=== PATIENT | male | born 1940 | race Caucasian/White ===

== ENCOUNTER → 2017-07-14 09:12 | Outpatient (CLI) | payer MEDICARE, OTHER, SELFPAY ==
[2017-07-14 10:35] LABS: Anion Gap 6 (5-15); BUN 43 mg/dL (7-18); BUN/Creat Ratio 33.6 RATIO (10-20); Calcium,Total 8.7 mg/dL (8.5-10.1); Chloride 109 mmol/L (98-107); Cholesterol 189 mg/dL (200); Creatinine, Serum 1.28 mg/dL (0.70-1.30); EST Glomerular Filtration Rate 58 mL/min (>60); Est Glom Filt Rate - Afr Amer 70 mL/min (>60); Glucose 102 mg/dL (74-106); High Density Lipoprotein 53 mg/dL; PSA,Total - Annual Screen 1.34 ng/mL (0.00-4.00); Potassium 4.5 mmol/L (3.5-5.1); Sodium Level 139 mmol/L (136-145); Triglycerides 75 mg/dL; Very Low Density Lipoprotein 15 mg/dL (5-40)
== END ==
PROVIDERS: Family Provider Family Medicine; PCP Family Medicine; Visit Provider Family Medicine
DX: E78.00 Pure hypercholesterolemia, unspecified (principal); I10 Essential (primary) hypertension; Z12.5 Encounter for screening for malignant neoplasm of prostate
CPT/HCPCS: 36415; 80048; 80061; 84153; G0103

== ENCOUNTER → 2018-07-09 09:22 | Outpatient (CLI) | payer MEDICARE, OTHER, SELFPAY ==
[2018-07-09 12:38] LABS: Anion Gap 5 (5-15); BUN 40 mg/dL (7-18); BUN/Creat Ratio 29.6 RATIO (10-20); Calcium,Total 8.7 mg/dL (8.5-10.1); Chloride 111 mmol/L (98-107); Cholesterol 198 mg/dL (200); Creatinine, Serum 1.35 mg/dL (0.70-1.30); EST Glomerular Filtration Rate 54 mL/min (>60); Est Glom Filt Rate - Afr Amer 66 mL/min (>60); Glucose 103 mg/dL (74-106); High Density Lipoprotein 50 mg/dL; Potassium 4.6 mmol/L (3.5-5.1); Sodium Level 141 mmol/L (136-145); Triglycerides 85 mg/dL; Very Low Density Lipoprotein 17 mg/dL (5-40)
== END ==
PROVIDERS: Family Provider Family Medicine; PCP Family Medicine; Referring Provider Family Medicine; Visit Provider Family Medicine
DX: I10 Essential (primary) hypertension (principal); E78.00 Pure hypercholesterolemia, unspecified; Z12.5 Encounter for screening for malignant neoplasm of prostate
CPT/HCPCS: 36415; 80048; 80061

== ENCOUNTER → 2019-01-07 10:16 | Outpatient (CLI) | payer MEDICARE, OTHER, SELFPAY ==
[2019-01-07 12:44] LABS: Anion Gap 5 (5-15); BUN 39 mg/dL (7-18); BUN/Creat Ratio 30.7 RATIO (10-20); Calcium,Total 9.3 mg/dL (8.5-10.1); Chloride 108 mmol/L (98-107); Creatinine, Serum 1.27 mg/dL (0.70-1.30); EST Glomerular Filtration Rate 58 mL/min (>60); Est Glom Filt Rate - Afr Amer 70 mL/min (>60); Glucose 100 mg/dL (74-106); Potassium 4.6 mmol/L (3.5-5.1); Sodium Level 140 mmol/L (136-145)
== END ==
PROVIDERS: Family Provider Family Medicine; PCP Family Medicine; Referring Provider Family Medicine; Visit Provider Family Medicine
DX: I10 Essential (primary) hypertension (principal)
CPT/HCPCS: 36415; 80048

== ENCOUNTER → 2020-01-20 08:27 | Outpatient (CLI) | payer MEDICARE, OTHER, SELFPAY ==
[2020-01-20 10:41] LABS: Absolute Lymphocyte Count 1.14 X10^3/uL (0.83-4.51); Absolute Neutrophil Count 2.7 X10^3/uL (2.0-7.7); Basophil# 0.06 X10^3/uL; Basophil% 1.2 % (0-1); Eosinophil# 0.48 X10^3/uL; Eosinophils% 9.6 % (0-5); Hematocrit 43.1 % (40-54); Hemoglobin 14.1 g/dL (13.0-16.5); Lymphocyte # 1.14 X10^3/ul (4.0); Lymphocyte % 22.9 % (19-41); Mean Corp Hgb Conc 32.7 g/dL (32-36); Mean Corpuscular Hgb 30.1 pg (27.0-32.0); Mean Corpuscular Volume 91.9 fL (80-94); Mean Platelet Vol. 11.7 fl (6.2-12.0); Monocyte# 0.56 X10^3/uL; Monocyte% 11.2 % (0-10); NRBC Flagged by Analyzer 0 % (0-5); Neutrophil # 2.72 X10^3/uL (2.7-7.7); Neutrophil % 54.7 % (47-70); Platelet Count 163 K/mm3 (150-450); RBC Distribution Width CV 13.1 % (11.6-14.6); Red Blood Count 4.69 M/mm3 (4.6-6.2)
[2020-01-20 11:30] LABS: ALB/GLOB Ratio 1.1 RATIO (0.9-2.4); AST(SGOT) 24 U/L (15-37); Alanine Aminotransfer ALT/SGPT 31 U/L (16-61); Albumin, Serum 3.5 g/dL (3.2-5.0); Alkaline Phosphatase 48 U/L (45-117); Anion Gap 8 (5-15); BUN 36 mg/dL (7-18); BUN/Creat Ratio 24.7 RATIO (10-20); Chloride 108 mmol/L (98-107); Cholesterol 209 mg/dL (200); Creatinine, Serum 1.46 mg/dL (0.70-1.30); EST Glomerular Filtration Rate 49 mL/min (>60); Est Glom Filt Rate - Afr Amer 60 mL/min (>60); Globulin 3.3 g/dL (2.2-4.2); Glucose 103 mg/dL (74-106); High Density Lipoprotein 63 mg/dL; Potassium 4.4 mmol/L (3.5-5.1); Protein, Total 6.8 g/dL (6.4-8.2); Sodium Level 140 mmol/L (136-145); Triglycerides 81 mg/dL; Very Low Density Lipoprotein 16 mg/dL (5-40)
[2020-01-20 15:43] LABS: Microalbumin:Creatinine Ratio 39.6 mg/g CRE (<30 mg/g CRE)
== END ==
PROVIDERS: PCP Family Medicine; Referring Provider Family Medicine; Visit Provider Family Medicine
DX: I10 Essential (primary) hypertension (principal); E78.00 Pure hypercholesterolemia, unspecified
CPT/HCPCS: 36415; 80053; 80061; 82043; 82570; 85025

== ENCOUNTER → 2020-07-14 09:02 | Outpatient (CLI) | payer MEDICARE, OTHER, SELFPAY ==
[2020-07-14 10:50] LABS: Thyroid Stim Hormone (TSH) 8.55 uIU/mL (0.358-3.74)
== END ==
PROVIDERS: PCP Family Medicine; Visit Provider Family Medicine
DX: E04.1 Nontoxic single thyroid nodule (principal)
CPT/HCPCS: 36415; 84443

== ENCOUNTER → 2020-07-20 12:46 | Outpatient (CLI) | payer MEDICARE, OTHER, SELFPAY ==
--- NOTE | 2020-07-20 12:52 | US_ITS ---
STUDY: THYROID ULTRASOUND REASON FOR EXAM: Male, 79 years old. NODULE TECHNIQUE: Ultrasound evaluation of the thyroid was performed with real-time and static parada-scale imaging. COMPARISON: None. FINDINGS: RIGHT LOBE: The right lobe of the thyroid gland measures 3.8 x 1.7 x 2.3 cm. There is a homogeneous echotexture. There are no demonstrated solid, cystic or complex lesions. LEFT LOBE: The left lobe of the thyroid gland measures 4.2 x 1.1 x 2.1 cm. There is a homogeneous echotexture. There are no demonstrated solid, cystic or complex lesions. ISTHMUS: The isthmus measures 5 mm . The regional lymph nodes are normal. US/Thyroid IMPRESSION: Normal ultrasound examination of the thyroid. Electronically Signed: Malik Victor MD at 11:11 EDT Tel , Service support ,
== END ==
PROVIDERS: PCP Family Medicine; Referring Provider Family Medicine; Visit Provider Family Medicine
DX: E04.1 Nontoxic single thyroid nodule (principal)
CPT/HCPCS: 76536

== ENCOUNTER → 2021-01-08 08:53 | Outpatient (CLI) | payer MEDICARE, OTHER, SELFPAY ==
[2021-01-08 09:57] LABS: Absolute Lymphocyte Count 1.03 X10^3/uL (0.83-4.51); Absolute Neutrophil Count 3.1 X10^3/uL (2.0-7.7); Basophil# 0.08 X10^3/uL; Basophil% 1.4 % (0-1); Eosinophil# 0.63 X10^3/uL; Eosinophils% 11.3 % (0-5); Hematocrit 44.2 % (40-54); Hemoglobin 14.7 g/dL (13.0-16.5); Lymphocyte # 1.03 X10^3/ul (0.83-4.51); Lymphocyte % 18.4 % (19-41); Mean Corp Hgb Conc 33.3 g/dL (32-36); Mean Corpuscular Hgb 30.9 pg (27.0-32.0); Mean Corpuscular Volume 92.9 fL (80-94); Mean Platelet Vol. 11.7 fl (6.2-12.0); Monocyte% 12.5 % (0-10); NRBC Flagged by Analyzer 0 % (0-5); Neutrophil # 3.12 X10^3/uL (2.7-7.7); Neutrophil % 55.9 % (47-70); Platelet Count 145 K/mm3 (150-450); RBC Distribution Width CV 12.9 % (11.6-14.6); RBC Distribution Width SD 44.4 fl (35.1-43.9); Red Blood Count 4.76 M/mm3 (4.6-6.2); White Blood Count 5.6 K/mm3 (4.4-11.0)
[2021-01-08 10:16] LABS: AST(SGOT) 25 U/L (15-37); Alanine Aminotransfer ALT/SGPT 34 U/L (16-61); Albumin, Serum 3.6 g/dL (3.2-5.0); Alkaline Phosphatase 48 U/L (45-117); Anion Gap 4 (5-15); BUN 41 mg/dL (7-18); BUN/Creat Ratio 25.8 RATIO (10-20); Calcium,Total 9.1 mg/dL (8.5-10.1); Chloride 109 mmol/L (98-107); Cholesterol 203 mg/dL (200); Creatinine, Serum 1.59 mg/dL (0.70-1.30); EST Glomerular Filtration Rate 45 mL/min (>60); Est Glom Filt Rate - Afr Amer 54 mL/min (>60); Globulin 3.6 g/dL (2.2-4.2); Glucose 105 mg/dL (74-106); High Density Lipoprotein 54 mg/dL; Protein, Total 7.2 g/dL (6.4-8.2); Sodium Level 139 mmol/L (136-145); Triglycerides 127 mg/dL; Very Low Density Lipoprotein 25 mg/dL (5-40)
== END ==
PROVIDERS: PCP Family Medicine; Referring Provider Family Medicine; Visit Provider Family Medicine
DX: I10 Essential (primary) hypertension (principal)
CPT/HCPCS: 36415; 80053; 80061; 85025

== ENCOUNTER → 2021-01-11 10:15 | Outpatient (CLI) | payer MEDICARE, OTHER, SELFPAY ==
[2021-01-11 12:37] LABS: Thyroid Stim Hormone (TSH) 2.84 uIU/mL (0.358-3.74)
[2021-04-28 10:52] LABS: Anion Gap 9 (5-15); BUN 39 mg/dL (7-18); BUN/Creat Ratio 26.5 RATIO (10-20); Calcium,Total 9.2 mg/dL (8.5-10.1); Chloride 106 mmol/L (98-107); Creatinine, Serum 1.47 mg/dL (0.70-1.30); EST Glomerular Filtration Rate 49 mL/min (>60); Est Glom Filt Rate - Afr Amer 59 mL/min (>60); Glucose 113 mg/dL (74-106); Sodium Level 140 mmol/L (136-145)
== END ==
PROVIDERS: Nurse Practitioner Family; PCP Family Medicine; Visit Provider Family Medicine
DX: E03.9 Hypothyroidism, unspecified (principal)
CPT/HCPCS: 36415; 80048; 84443

== ENCOUNTER 2021-04-28 09:25 | Outpatient (CLI) | payer MEDICARE, OTHER, SELFPAY | END 2021-04-28 23:59 | disposition short-term general hospital (02) | LOC: MFPLAB 09:29 | PROVIDERS: PCP Nurse Practitioner Family; Referring Provider Nurse Practitioner Family; Visit Provider Nurse Practitioner Family | DX: Z00.00 Encounter for general adult medical examination without abnormal findings (principal) ==

== ENCOUNTER → 2021-12-27 | Outpatient (CLI) | payer MEDICARE, OTHER, SELFPAY ==
[2021-12-27 12:55] LABS: Thyroid Stim Hormone (TSH) 2.92 uIU/mL (0.358-3.74)
== END | disposition home or self-care (01) ==
LOC: MFPLAB 10:15
PROVIDERS: PCP Nurse Practitioner Family; Visit Provider Family Medicine
DX: E03.9 Hypothyroidism, unspecified (principal)
CPT/HCPCS: 36415; 84443

== ENCOUNTER → 2022-04-07 | Outpatient (CLI) | payer MEDICARE, OTHER, SELFPAY ==
--- NOTE | 2022-04-07 14:06 | RAD_ITS ---
STUDY: X-RAY - PELVIS AND RIGHT HIP REASON FOR EXAM: Male, 81 years old. Right leg and hip pain for one month. Limp. TECHNIQUE: 3 views of the pelvis and hip. COMPARISON: None. FINDINGS: There is a non-specific bowel gas pattern. Normal visualized soft tissue structures. Degenerative changes of the lower lumbar spine. Normal bilateral iliac wings, sacroiliac joints and visualized sacrum. Normal bilateral superior and inferior pubic rami. Normal pubic symphysis. Normal bilateral ischial tuberosities. There is evidence of a left hemiarthroplasty. Normal visualized right femoral head. There is cortical sclerosis with sub-cortical cyst formation of the acetabulum. There is moderate to severe articular joint space narrowing of the hip. RAD/HIP, UNI W/ Pelvis 2-3 Views IMPRESSION: Degenerative changes of right hip and lumbar spine no fracture or dislocation.. Electronically Signed: Shamir Woodruff DO at 16:58 EST ,
--- NOTE | 2022-04-07 14:06 | RAD_ITS ---
STUDY: X-RAY - RIGHT KNEE REASON FOR EXAM: Male, 81 years old. Pain for one month. Patient has a bad limping uses a cane. TECHNIQUE: 3 view(s) of the knee. COMPARISON: None. FINDINGS: Normal visualized distal femur. Normal visualized proximal tibia and fibula. Normal proximal tibiofibular articulation. There is no acute fracture, dislocation or destructive osseous pathology. There is mild degenerative arthrosis of the medial femorotibial compartment. Normal lateral femorotibial compartment. Normal patellofemoral articulation. There is no demonstrated joint effusion. There are atherosclerotic calcifications. RAD/Knee 3 Views IMPRESSION: Mild arthrosis of the medial femorotibial compartment. No fracture or dislocation. Electronically Signed: Shamir Woodruff DO at 16:59 EST ,
== END | disposition home or self-care (01) ==
PROVIDERS: PCP Nurse Practitioner Family; Referring Provider Nurse Practitioner Family; Visit Provider Nurse Practitioner Family
DX: M16.11 Unilateral primary osteoarthritis, right hip (principal); M79.604 Pain in right leg
CPT/HCPCS: 73502; 73562

== ENCOUNTER → 2022-06-27 | Outpatient (CLI) | payer MEDICARE, OTHER, SELFPAY ==
[2022-06-27 12:20] LABS: ALB/GLOB Ratio 1.1 RATIO (0.9-2.4); AST(SGOT) 17 U/L (15-37); Alanine Aminotransfer ALT/SGPT 22 U/L (16-61); Albumin, Serum 3.7 g/dL (3.2-5.0); Alkaline Phosphatase 58 U/L (45-117); Anion Gap 4 (5-15); BUN 52 mg/dL (7-18); BUN/Creat Ratio 29.9 RATIO (10-20); Calcium,Total 9.3 mg/dL (8.5-10.1); Chloride 109 mmol/L (98-107); Cholesterol 203 mg/dL (200); Creatinine, Serum 1.74 mg/dL (0.70-1.30); EST Glomerular Filtration Rate 40 mL/min (>60); Est Glom Filt Rate - Afr Amer 48 mL/min (>60); Globulin 3.4 g/dL (2.2-4.2); Glucose 113 mg/dL (74-106); High Density Lipoprotein 55 mg/dL; Potassium 4.9 mmol/L (3.5-5.1); Protein, Total 7.1 g/dL (6.4-8.2); Sodium Level 138 mmol/L (136-145); Triglycerides 83 mg/dL; Very Low Density Lipoprotein 17 mg/dL (5-40)
== END | disposition home or self-care (01) ==
LOC: MFPLAB 10:31
PROVIDERS: PCP Nurse Practitioner Family; Visit Provider Family Medicine
DX: E78.00 Pure hypercholesterolemia, unspecified (principal); I10 Essential (primary) hypertension
CPT/HCPCS: 36415; 80053; 80061

== ENCOUNTER → 2022-08-10 | Outpatient (CLI) | payer MEDICARE, OTHER, SELFPAY ==
[2022-08-10 12:35] LABS: Absolute Neutrophil Count 4.2 X10^3/uL (2.0-7.7); Basophil# 0.06 X10^3/uL; Basophil% 0.9 % (0-1); Eosinophil# 0.52 X10^3/uL; Hematocrit 44.4 % (40-54); Hemoglobin 14.2 g/dL (13.0-16.5); Lymphocyte % 15.5 % (19-41); Mean Corpuscular Hgb 30.3 pg (27.0-32.0); Mean Corpuscular Volume 94.7 fL (80-94); Mean Platelet Vol. 11.8 fl (6.2-12.0); Monocyte# 0.69 X10^3/uL; Monocyte% 10.7 % (0-10); NRBC Flagged by Analyzer 0 % (0-5); Neutrophil # 4.15 X10^3/uL (2.7-7.7); Neutrophil % 64.3 % (47-70); Platelet Count 172 K/mm3 (150-450); RBC Distribution Width CV 13.2 % (11.6-14.6); RBC Distribution Width SD 45.3 fl (35.1-43.9); Red Blood Count 4.69 M/mm3 (4.6-6.2); White Blood Count 6.5 K/mm3 (4.4-11.0)
[2022-08-10 12:41] LABS: ALB/GLOB Ratio 0.9 RATIO (0.9-2.4); AST(SGOT) 19 U/L (15-37); Alanine Aminotransfer ALT/SGPT 23 U/L (16-61); Albumin, Serum 3.6 g/dL (3.2-5.0); Alkaline Phosphatase 66 U/L (45-117); Anion Gap 6 (5-15); BUN 41 mg/dL (7-18); BUN/Creat Ratio 28.7 RATIO (10-20); Calcium,Total 9.9 mg/dL (8.5-10.1); Chloride 106 mmol/L (98-107); Creatinine, Serum 1.43 mg/dL (0.70-1.30); EST Glomerular Filtration Rate 50 mL/min (>60); Est Glom Filt Rate - Afr Amer 61 mL/min (>60); Globulin 3.8 g/dL (2.2-4.2); Glucose 103 mg/dL (74-106); Potassium 5.2 mmol/L (3.5-5.1); Protein, Total 7.4 g/dL (6.4-8.2); Sodium Level 138 mmol/L (136-145)
== END | disposition home or self-care (01) ==
LOC: MFPLAB 11:08
PROVIDERS: PCP Family Medicine; Visit Provider Family Medicine
DX: Z01.818 Encounter for other preprocedural examination (principal)
CPT/HCPCS: 36415; 80053; 85025

== ENCOUNTER → 2022-08-19 | Outpatient (CLI) | payer MEDICARE, OTHER, SELFPAY ==
[2022-08-19 12:34] LABS: Potassium 4.9 mmol/L (3.5-5.1)
== END | disposition home or self-care (01) ==
PROVIDERS: PCP Family Medicine; Visit Provider Family Medicine
DX: E87.5 Hyperkalemia (principal)
CPT/HCPCS: 36415; 84132

== ENCOUNTER 2022-09-28 14:42 | Observation (INO) | payer MEDICARE, OTHER, SELFPAY ==
--- NOTE | 2022-09-14 13:24 | PCM.HP.BLA ---
History and Physical DATE OF SURGERY: 09/28/2022 SCHEDULED PROCEDURE: RIGHT TOTAL HIP ARTHROPLASTY HISTORY OF PRESENT ILLNESS: Patient is a 81-year-old male with a chief complaint of right hip pain. Patient complains of pain with 7 month duration. The pain is 2-4 on a scale of 10, 7 with activity. The pain is increased with walking, sitting, twisting. The pain is located lateral hip, groin. The patient states that the pain does not awaken them at night. Activity modification include a reduced ability to perform normal activity without pain. The patient does perceive that the affected leg is longer than the other. Previous treatments include rest, Ibuprofen. The patient has a history of stroke that occurred in 2000, the left side was affected. Patient had a previous stroke in 2000 leading his left side significantly impaired. His right side is his dominant side and pain in the right hip has significant limited his ability to perform activities of daily living without associated pain. His [id number]-uld who is a nurse and one of his primary caregivers notes he has increasing difficulty dressing and undressing himself with his limited hip range of motion and pain. This is led to loss of independence of some ADLs. he failed conservative therapy and would like to proceed with total arthroplasty REVIEW OF SYSTEMS: Review Of Systems: Constitutional: Denies change in appetite, fever and weight change. Cardiovasular: Denies chest pain, heart murmur and irregular heartbeat. Respiratory: Denies cough, pneumonia, shortness of breath, tuberculosis and wheezing. Gastrointestinal: Reports heartburn, but denies constipation, diarrhea, nausea, rectal itching, bloody stools and vomiting. Genitourinary: . (F Genital Sx) . (Urinary Sx) Musculoskeletal: Reports gait disturbance, leg swelling, pain, trouble walking and weakness. Skin: Reports history of shingles, but denies Raynaud's and tattoo. Neurological: Reports ambulatory dysfunction but denies dizziness, numbness/tingling and tremor. Psychiatric: Denies anxiety, insomnia and stress. Hematologic/Lymphatic: Denies anemia, bleeding/bruising tendency and past transfusion. Reviewed and updated. PAST MEDICAL HISTORY: Advance Care Plan: Other Directive, living will Effective Date: 07/13/2022 Past Medical History: Medical Problems: Asthma, Hard of Hearing, High Blood Pressure, Stroke Accidents: Fracture - (2004) LT HIP / FALL Surgical Hx: Hip Replacement Lt - (2004) [facility] Cataracts - (02/2022) BILAT Anesthesia Complications: None Assistive Devices: Cane, Glasses, Walker, Brace Reviewed and updated. SOCIAL HISTORY: Social History: Marital: .Occupation: Retired.Work Status: Retired.Hand Dominance: Right-handed. Personal Habits: Cigarette Use: Never Smoked Cigarettes.Smokeless Tobacco: Never Used Smokeless Tobacco.E-Cigarette Use: Never used.Alcohol: Denies use.Drug Use: Denies Use.Enjoy Exercising: Never Exercises. Reviewed, no changes. VITALS: Ht: 69 Wt: 183lb Wt k.009 BMI: 27.0 BP: 120/66 Pulse: 85 Resp: 15 T: 97.5 T: 36.4C Pain Level: 5 O2SatR: 97 ALLERGIES: No Known Drug Allergy MEDICATIONS: Breo Ellipta 100-25 mcg/Act daily, Labetalol HCL 100 mg 1 by mouth every day, Enalapril Maleate 20 mg 1 PO daily, Levothyroxine Sodium 25 mcg 1 by mouth every day PRE-OP EXAM: General appearance:NORMAL Other: Eyes: Conjunctivae and lids: NORMAL Pupils: ERR Ears, Nose, Mouth, and Throat: NORMAL Other: Inspection of lips, teeth and gums: NORMAL Other: Neck: Examination of neck: no masses noted. Respiratory: Assessment of respiratory effort: NORMAL Other: Auscultation of lungs: clear to auscultation no wheezes, rhonchi or rales. Cardiovascular: Auscultation of heart: regular rate and rhythm, no murmurs, gallops or rubs. Exam of carotid arteries: NORMAL Other: Gastrointestinal: Exam of abdomen: soft, nontender, nondistended bowel sounds present. Lymphatic: Palpation of nodes in neck: NORMAL Other: Palpation of nodes in Axillae: NORMAL Other: Neurological: see below Psychiatric: Orientation to time, place and person: NORMAL Other: Mood and affect: NORMAL Other: PHYSICAL EXAMINATION: Exam: Const: Appears healthy. No signs of apparent distress present. Alert and oriented x 3. Musculo: Antalgic gait, patient ambulates with a walker. Patient has significant weakness on the left side. Hips: ?Insp/Palp: Right hip: Pain with passive motion. Flexion 90 degrees, internal rotation 5 degrees. 4 out of 5 hip flexion strength secondary to pain. Skin: Skin is warm, dry and intact. Neuro: Sensation to light touch is intact in the lower extremities deep peroneal, lower extremities dorsal cutaneous, lower extremities saphenous, lower extremities sural and lower extremities tibial nerve distribution. Neurological and vascular function intact. IMAGING STUDIES: AP pelvis was obtained today with me for preoperative planning. These show previous left hip hemiarthroplasty with continued joint space. There is shortening of the left hip with decreased offset compared to the right based on right eye for comparison. On the right there is complete loss of joint space subchondral sclerosis and osteophyte formation as well as subchondral cyst formation with collapse of the femoral head and flattening of the femoral head. These findings are consistent with severe stage IV erosive gxpy-og-suya osteoarthritis. IMPRESSION: 1. GRADE IV OSTEOARTHRITIS RIGHT HIP 2. Asthma 3. Hard of Hearing 4 High Blood Pressure 5. Stroke PLAN: Patient denies history of DVT or PE, open wounds or sores over the body, no allergies to antibiotics and no current antibiotic use. No current dental issues Aspirin 81 twice a day ?4 weeks for DVT prophylaxis postoperatively At this time patient has [facility] France did discuss and review with the patient all treatment options including surgical versus nonsurgical options. Patient does wish to proceed with the above-stated procedure. Potential risk, benefits, and complications of the procedure were discussed in detail including but not limited to , infection, nerve and blood vessel damage, persistent pain, numbness, tingling, paresthesias, blood clot, pulmonary embolism, and requirement for possible further surgery. The patient expressed full understanding and has no further questions for the doctor. Patient does agree to proceed with the above-stated procedure and has signed the surgery consent form. I have reviewed the [place] Automated Rx Reporting System (OARRS) report for this patient for refill pattern and other prescriber involvement as part of the appropriate surveillance for the provision of acute and chronic controlled medications. The report was requested and reviewed on the date of this entry and was considered in the prescribing process. Discussed with the patient the risks associated with the COVID-19 virus including the risk of exposure while at the hospital. The patient was reassured local hospitals have low infection rates and taken all necessary precautions to limit patient exposure to COVID-19. Limiting the patient's time in the hospital may decrease their exposure to COVID-19. The patient was notified that we will need to comply with any screening or testing the hospital wishes to perform and that surgery may be delayed for any positive test results.
--- NOTE | 2022-09-20 11:20 | RAD_ITS ---
STUDY: X-RAY CHEST REASON FOR EXAM: Male, 81 years old. Preop, hip surgery. TECHNIQUE: PA and lateral views of the chest. COMPARISON: None. FINDINGS: The lungs are clear and expanded. There is no demonstrated pleural abnormality. Normal size heart. Normal mediastinum and adonis. Normal visualized pulmonary arteries. Normal visualized aortic arch and descending thoracic aorta. There are diffuse degenerative changes of the visualized thoracic spine. There is a healed fracture of the left mid clavicle. There is no demonstrated abnormality of the visualized soft tissue structures of the upper abdomen. RAD/Chest PA and Lateral IMPRESSION: No acute cardiopulmonary disease. Electronically Signed: Shamir Woodruff DO at 16:38 EDT ,
[2022-09-20 12:47] LABS: Absolute Lymphocyte Count 1.08 X10^3/uL (0.83-4.51); Absolute Neutrophil Count 4.9 X10^3/uL (2.0-7.7); Basophil# 0.06 X10^3/uL; Basophil% 0.8 % (0-1); Eosinophil# 0.43 X10^3/uL; Hematocrit 44.3 % (40-54); Hemoglobin 14.5 g/dL (13.0-16.5); Lymphocyte # 1.08 X10^3/ul (0.83-4.51); Lymphocyte % 15.1 % (19-41); Mean Corp Hgb Conc 32.7 g/dL (32-36); Mean Corpuscular Hgb 30.3 pg (27.0-32.0); Mean Corpuscular Volume 92.7 fL (80-94); Mean Platelet Vol. 11.5 fl (6.2-12.0); Monocyte# 0.62 X10^3/uL; Monocyte% 8.7 % (0-10); NRBC Flagged by Analyzer 0 % (0-5); Neutrophil # 4.92 X10^3/uL (2.7-7.7); Neutrophil % 68.7 % (47-70); Platelet Count 184 K/mm3 (150-450); RBC Distribution Width CV 12.7 % (11.6-14.6); Red Blood Count 4.78 M/mm3 (4.6-6.2); White Blood Count 7.2 K/mm3 (4.4-11.0)
[2022-09-20 14:07] LABS: Albumin, Serum 3.6 g/dL (3.2-5.0); Anion Gap 8 (5-15); BUN 41 mg/dL (7-18); BUN/Creat Ratio 27.7 RATIO (10-20); Chloride 107 mmol/L (98-107); Creatinine, Serum 1.48 mg/dL (0.70-1.30); EST Glomerular Filtration Rate 48 mL/min (>60); Est Glom Filt Rate - Afr Amer 58 mL/min (>60); Glucose 96 mg/dL (74-106); Magnesium 2.3 mg/dL (1.6-2.6); Potassium 4.4 mmol/L (3.5-5.1); Sodium Level 137 mmol/L (136-145); Thyroid Stim Hormone (TSH) 3.77 uIU/mL (0.358-3.74)
[2022-09-28] VITALS (17 sets, daily range): BP systolic 95–158; BP diastolic 55–78; PULSE 63–91; RESP 15–20; TEMP 36.3–37.1; O2SAT 92–99; BMI 25.8
--- NOTE | 2022-09-28 07:09 | PCM.OPRPT ---
Report of Operation Date of Procedure: 09/28/22 Pre-Operative Diagnosis: Right hip primary osteoarthritis Post-Operative Diagnosis: Right hip primary osteoarthritis Surgery/Procedure Performed:: Right minimally invasive direct anterior total hip replacement Description of Surgical Findings:: Stable hip with equal leg length Surgeon: Christopher France buckle gluer: Jorge Pineda Type of Anesthesia: Spinal Anesthesiologist: Wagner Sarmiento Special Medications: 2 g Ancef, 1 g TXA at incision, 1 g TXA closure, 10 mg Decadron, joint cocktail (5 mg Duramorph, 30 mL of 0.5% Ropivicaine, 1000 units of epinephrine, 30 mg of Toradol) Specimen's removed: Bony cuts Estimated Blood Loss (mL): 250 Fluids Replaced: 1500 Description of Procedure: Components used: 1. Insignia Deb femoral stem size 5 high offset 2. Deb trident 2 acetabular shell size 58 mm 3. Deb X3 polyethylene f 4. Deb Biolox delta 36 mm, 0mm femoral head Brief history operative indications: 81 yo m who failed conservative measures for their hip osteoarthritis. X-rays were consistent with osteoarthritis including joint space narrowing, osteophyte formation and subchondral cysts. Total hip replacement was discussed with the patient with risks and benefits including but not limited to blood loss, DVTs, PEs, neurovascular damage, dislocation, general risks of anesthesia including loss of life. Patient demonstrated an understanding medical clearance is obtained the patient was consented for surgery. Procedure: On the date of procedure the patient's right hip was marked in the preoperative area. Patient was then taken back to the operating room where anesthesia assumed control of the C-spine and airway and administered anesthetic. Patient was transferred to the operating table and placed in the supine position. The hips were placed at the break of the bed and a sacral bump was placed. The right lower extremity was then prepped out in a sterile fashion using chlorhexidine while the surgeon scrubbed. The PA was vital in the positioning of the patient. Upon reentering the room the right lower extremity was draped in the standard orthopedic fashion and the incision was marked. A timeout was called and everyone agreed upon the side, the site, the procedure be performed, antibody given, and patient's identity. At this time incision was made through skin, subcutaneous tissue, and fat down to fascia. The fascia was then incised and the TFL was retracted laterally. A retractor was placed on the lateral border of the femoral neck. Attention was directed to the inferior portion of the approach and all crossing vessels were identified and appropriately coagulated. A retractor was then placed on the medial portion of the femoral neck. The anterior capsule was then cleared of all soft tissue and then H shaped capsulotomy was made. The retractors were then placed inside the capsule. The femoral neck was identified and a cleanup cut was made. At this time a power corkscrew was used to remove the femoral head. Attention was then turned toward the acetabulum where the soft tissues were appropriately retracted and the acetabulum was sequentially reamed to 58 mm. A 58 mm cup was then selected and impacted into place. Acetabular liner was impacted into place and locking mechanism was verified. The position of the acetabular cup was then verified under live fluoroscopy. Attention was then turned to the femur. Soft tissue releases on the medial and lateral femoral neck were appropriately done, the leg was externally rotated and lateralized. A Lay retractor was placed medially and proximally to the greater trochanter this allowed appropriate visualization and exposure of the femoral canal. Rongeour was then used to remove excess lateral bone. A canal finder and entry broach were used to open the proximal canal. Once we verified we were down the femoral canal we subsequently broached up to a size 5 femur. The appropriate neck was placed in the previously selected head was trialed with a 0 mm neck. Traction was pulled and the hip was reduced with internal rotation. Once it was appropriately reduced and stability was checked. There was minimal shuck, equal leg lengths and appropriate stability with hyperextension and external rotation as well as with 90? flexion and internal rotation. Fluoroscopy was then also used to verify the position of the components and leg lengths using the contralateral side for comparison. The trial components were then dislocated the proximal femur was again exposed and the components were removed from the wound. The final components were verified and opened. The wound was copiously irrigated out with normal saline. The acetabulum was checked for any residual debris. The final components were placed and impacted. Traction and internal rotation were again used to reduce the hip. After adequate reduction the hip remained stable with appropriate leg lengths. The final components were once again checked with live fluoroscopy and were found to be satisfactory. The wound was then copiously irrigated with normal saline once more, and hemostasis was obtained. Closure was then done using #1 Vicryl runner to close the fascia. A 2-0 vicryl interuppted sutures were used to close the subcutaneous skin. A 3-0 Monocryl and Steri-Strips were used for final skin closure. A Silverlon dressing was placed. Patient was awakened by anesthesia and transferred to the [facility]. Patient was then transferred to the PACU for recovery. During the course of the procedure the physician customer operations specialist (PE) played a vital role. Their intimate knowledge of my steps in the procedure aided in safe and expedient completion of the procedure. The PE played a vital rolls in positioning particularly in obtaining the appropriate positioning of the sacral bump. The PE was also vital in the retraction of soft tissues during the exposure and especially the femoral work as this is a vital part of the procedure to prevent complications and fractures. The PE was also vital and protecting soft tissues during times of bony cuts and reaming. He also played a vital role in closure with my direct supervision. The PE was also important during reduction and dislocation of the joint and trials intraoperatively. Postoperative plan: Patient will get 24 hours postop antibiotics. Patient will get in-house physical therapy and will be weight-bear as tolerated. Patient will follow up in office in 2 weeks for a wound check and x-rays. Aspirin 81 mg twice daily. Complications No intraoperative complications Admit VTE Documentation VTE Present on Admission: No VTE Mechan Device Prophylaxis: SCD's and Thigh High VILMA Hose VTE Pharm Prophylaxis ordered?: Yes
[2022-09-28] MEDS: Lactated Ringers 1,000 ML 999 ML IV ×2 (08:19→12:00)
[2022-09-28] MEDS: Magnesium 1 GM over 15 mins IV (08:20)
[2022-09-28] MEDS: Celecoxib 200 MG Capsule 400 MG PO (08:33)
[2022-09-28] MEDS: Gabapentin 600 MG Tablet PO (08:33)
[2022-09-28] MEDS: Acetaminophen 500 MG Tablet 1000 MG PO ×3 (08:34→22:42)
[2022-09-28 08:54] LABS: Bedside Glucose 134 mg/dL (74-106)
[2022-09-28] MEDS: Lactated Ringers 1,000 ML 75 ML IV (09:10)
[2022-09-28] MEDS: Cefazolin 2 GM in 0.9% Normal Saline 100 ML IV (09:48)
[2022-09-28] MEDS: TXA 1000mg in NS100 100ml (IVPB at Incision) 660 MG IV (09:58)
[2022-09-28] MEDS: dexAMETHasone 10 MG/ML Vial IV (09:58)
--- NOTE | 2022-09-28 10:00 | HIP_PTH ---
PATIENT: KELLY CISNEROS Jr. LOC: [facility]3 U#:[id number] AGE/SX: 81/M [place] [facility] [place] [place]09/28/[address]: Dr. Christopher France MD : [id number] BED: 1 DIS: 09/29/2022 SPEC #: [id number] RECD: 09/28/22 13:18 STATUS: JAIRON CALDWELL #: [id number] FADI: 09/28/22 10:[address]: Christopher France DEPT: SURGICAL PATHOLOGY RECD BY: Hazel Velásquez ENTERED: 09/28/22 13:28 SP TYPE: TOTAL HIP OTHR DR: DO Florence Singleton PA Tissues: Hip, NOS Procedures: Decalcification bone/plaque Surgery Specimen Level IV HEADER OPERATION: ERAS, total hip anterior approach PRE-OP DIAGNOSIS: Grade IV osteoarthritis right hip TISSUE SUBMITTED: Bone and soft tissue of right hip MICROSCOPIC DIAGNOSIS Bone and tissue of right hip, total hip resection: Severe degenerative joint disease. Mild synovial hyperplasia. AM:migdalia 09/30/2022 MICROSCOPIC DESCRIPTION Slides are reviewed. GROSS DESCRIPTION Received is one container labeled with the patient's name and designated bone and tissue right hip. The specimen consists of a partially deformed church femoral head measuring 5.5 x 6.0 x 3.5 cm. Also present in the container is a detached piece of bone consistent with portion of femoral neck measuring 5.5 x 4.0 x 1.5 cm. The articular surface displays prominent osteophyte formation, eburnation and bone erosion. Also present in the specimen container is a detached piece of bone reaming measuring in aggregate 6.0 x 6.0 x 2.0 cm. The soft tissue attached to the femoral head measures 3.0 x 1.5 x 0.5 cm. Auto Transport Driver sections are submitted in two cassettes as follows: 1 - entire soft tissue attached to the femoral head, 2 - bone after decalcification. / SJ:migdalia 09/28/2022 TC:5 CPT: 20612, 50220
--- NOTE | 2022-09-28 10:45 | RAD_ITS ---
HISTORY: PAIN. TECHNIQUE: 5 spot images. COMPARISON: XR same day. FINDINGS: OSSEOUS STRUCTURES: Fluoroscopic guidance for right hip arthroplasty. Left hip arthroplasty also noted RAD/Hip 1 view with Pelvis IMPRESSION: Image guidance for right hip arthroplasty. Please refer to operative note. Electronically Signed: Liza Hale MD at 10:04 EDT ,
[2022-09-28] MEDS: TXA 1000mg in NS100 100ml (IVPB at Closure) 660 MG IV (11:35)
--- NOTE | 2022-09-28 12:25 | RAD_ITS ---
STUDY: X-RAY - PELVIS AND RIGHT HIP REASON FOR EXAM: Male, 81 years old. Post Op -- AP both hips on single fe s/lateral of op hip PACU TECHNIQUE: 2 views of the pelvis and hip. COMPARISON: Comparison is made with prior examination dated April 07, 2022. FINDINGS: The patient is status post right total hip replacement. There is good alignment. Postoperative soft tissue changes. RAD/Hip Min 2 Views (Portable) IMPRESSION: Status post right total hip replacement. There is good alignment. Postoperative soft tissue changes. Electronically Signed: Jun Carter MD at 13:02 EDT ,
[2022-09-28] MEDS: Lactated Ringers 1,000 ML 125 ML IV (13:22)
--- NOTE | 2022-09-28 15:42 | PCM.PN.HOSP ---
Reason for Visit Reason for Visit: Right total hip arthroplasty Subjective Subjective Mr. Mcdonald is an 81-year-old white male who presented to the hospital for an elective right total hip arthroplasty with Dr. France on 09/28/2022. Patient had been having ongoing for considerable amount of time and having worse pain with walking, sitting, and twisting. His pain was located in the lateral hip and groin area. He had to have significant activity modification to reduce his symptoms. Previous treatments included rest and ibuprofen. He has a remote history of stroke in 2000 and his left-side was affected. His right-sided is a dominant side and uses his right side significantly to perform activities of daily living and independent activities of daily living. He had failed conservative treatment and wanted to proceed with a total hip arthroplasty. We have been consulted in the postoperative period for medical management. Objective Data Objective Data Vital Signs: Vital Signs Temp Pulse Resp BP Pulse Ox O2 Del Method O2 Flow Rate 97.8 F 78 18 140/78 H 92 Room Air 4 09/28/22 15:27 09/28/22 15:27 09/28/22 15:27 09/28/22 15:27 09/28/22 15:27 09/28/22 15:27 09/28/22 13:00 Oxygen Flow Rate (L/min) 4 Oxygen Delivery Method Room Air Weight: 84 kg Body Mass Index (BMI) 25.8 Intake & Output: Intake and Output for Last 24 Hours 09/26/22 09/27/22 09/28/22 23:59 23:59 23:59 Intake Total 3644.5 / 3644.5 Balance 3644.5 / 3644.5 Lab / Micro Data 09/20/22 11:21 09/20/22 11:21 Labs: Laboratory Results - last 24 hr 09/28/22 08:10: POC Glucose 134 H Micro: Microbiology 09/20/22 11:21 Swab (Method) Nasal Screen MRSA/MSSA - Final Radiography Diagnostic Testing: Radiology Impression Hip X-Ray 09/28/22 12:25 IMPRESSION: Status post right total hip replacement. There is good alignment. Postoperative soft tissue changes. Electronically Signed: Jun Carter MD at 13:02 EDT , Physical Exam Const alert, oriented x3, no apparent distress, average body habitus, healthy appearing and well nourished Constitutional Narrative: Elderly, white male, sitting up in bed, watching television and appears comfortable HEENT head/scalp atraumatic and moist oral mucous membranes HEENT Narrative: Dentition is fair for age, Mallampati is 2, no thrush, patient is extremely hard of hearing Head and Scalp: normocephalic Resp normal respiratory effort, no retractions, no use of accessory muscles and clear to auscultation bilaterally Auscultation: Negative for rales, rhonchi or wheezes Cardio regular rate, regular rhythm, S1 normal heart sound, S2 normal heart sound, no murmurs, no rub, no gallops and no clicks GI normal to inspection, nondistended, normoactive bowel sounds, soft to palpation and non-tender Extremity no clubbing, cyanosis or edema Extremity Narrative: Operative dressing in place, pedal pulses are 2+, polar ice on right hip Neuro oriented x3 Neuro Narrative: Decreased movement right lower extremity due to postoperative sequelae but no new focal deficits other than his baseline residual left-sided weakness from previous stroke Psych affect normal Psych Narrative: Very pleasant Assessment & Plan Assessment/Plan (1) Osteoarthritis of right hip: PLAN: Plan Osteoarthritis of the right hip -Postop day 0 right total hip arthroplasty -Management per primary service -PT/OT consultation -Weightbearing as tolerated -Aspirin twice daily for DVT prophylaxis -Outpatient follow-up with orthopedic surgery in 2 weeks History of stroke -Persistent left-sided weakness -Patient is not on any chronic medications pertaining to this at this time including aspirin or Plavix CKD stage IIIb -Baseline serum creatinine looks to be between 1.4 and 1.6 -Preoperative serum creatinine 1.48 on 09/20/2022 -Avoid nephrotoxins as able -Check a.m. BMP Hypertension -Continue home enalapril -Continue home labetalol Hypothyroidism -Continue home levothyroxine Vitamin D deficiency -Continue cholecalciferol History of asthma -No current signs of exacerbation -Continue home inhalers DVT prophylaxis -Per primary service with aspirin twice daily Charges/Coding Visit Charges Inpatient E&M: 71776 Subs Hosp L2
[2022-09-28] MEDS: Famotidine 20 MG Tablet PO (16:22)
[2022-09-28] MEDS: Cefazolin 1 GM/50 ML BAG IV (17:10)
[2022-09-28] MEDS: Aspirin 81 MG TAB.CHEW PO (22:42)
[2022-09-28] MEDS: Senna/Docusate Sodium 1 Tablet 2 TABLET PO (22:42)
[2022-09-29] MEDS: Cefazolin 1 GM/50 ML BAG IV (01:23)
[2022-09-29 01:29] VITALS: BP 126/73; PULSE 74; RESP 18; TEMP 36.6; O2SAT 96
[2022-09-29 05:23] VITALS: BP 124/76; PULSE 67; RESP 18; TEMP 36.3; O2SAT 96
[2022-09-29] MEDS: Acetaminophen 500 MG Tablet 1000 MG PO ×2 (05:26→15:04)
[2022-09-29] MEDS: Levothyroxine 25 MCG TABLET PO (05:26)
[2022-09-29] MEDS: Budesonide Respules 0.5 MG/2 ML AMPUL.NEB. INHALATION (07:10)
[2022-09-29] MEDS: Albuterol 2.5 MG/3 ML VIAL.NEB. INHALATION ×2 (07:10→12:44)
[2022-09-29 07:12] VITALS: PULSE 70; RESP 18
[2022-09-29 07:19] LABS: Hematocrit 34.8 % (40-54); Hemoglobin 11.7 g/dL (13.0-16.5); Mean Corp Hgb Conc 33.6 g/dL (32-36); Mean Corpuscular Volume 92.3 fL (80-94); Mean Platelet Vol. 11.3 fl (6.2-12.0); Platelet Count 150 K/mm3 (150-450); RBC Distribution Width CV 12.7 % (11.6-14.6); RBC Distribution Width SD 42.8 fl (35.1-43.9); Red Blood Count 3.77 M/mm3 (4.6-6.2); White Blood Count 9.6 K/mm3 (4.4-11.0)
[2022-09-29 07:53] LABS: Anion Gap 7 (5-15); BUN 44 mg/dL (7-18); BUN/Creat Ratio 23.5 RATIO (10-20); Calcium,Total 8.3 mg/dL (8.5-10.1); Chloride 105 mmol/L (98-107); Creatinine, Serum 1.87 mg/dL (0.70-1.30); EST Glomerular Filtration Rate 37 mL/min (>60); Est Glom Filt Rate - Afr Amer 45 mL/min (>60); Estimated Creatinine Clearance 31.88 ml/min; Glucose 131 mg/dL (74-106); Sodium Level 137 mmol/L (136-145)
[2022-09-29] MEDS: Senna/Docusate Sodium 1 Tablet 2 TABLET PO (09:11)
[2022-09-29] MEDS: Labetalol 100 MG Tablet PO (09:12)
[2022-09-29] MEDS: Cholecalciferol (VIT D3) 25 MCG TABLET (1,000 UNITS) PO (09:12)
[2022-09-29] MEDS: Aspirin 81 MG TAB.CHEW PO (09:12)
[2022-09-29] MEDS: Lisinopril 20 MG Tablet PO (09:12)
[2022-09-29] MEDS: Famotidine 20 MG Tablet PO (09:12)
[2022-09-29 10:00] VITALS: BP 124/65; PULSE 77; RESP 18; TEMP 36.6; O2SAT 95
--- NOTE | 2022-09-29 10:38 | CASEMGMT ---
Addendum entered by Porsha Santana 09/29/22 14:08: [facility] requested SN for monitoring of incision. SN added. Addendum entered by Porsha Santana 09/29/22 12:12: Received notification from Guillermina at [facility] that they are able to accept pt for care. MARCE LIMON into pt room and he is aware. Addendum entered by Porsha Santana 09/29/22 10:53: Pt dil brought out HH list and [facility] is first choice. TC to Guillermina at [facility], referral left on vm, will await returned call. Original Note: RN BRAXTON Assessment: Face to Face with pt for initial transition planning/care coordination assessment. RN CM introduced self and role at [facility], pt voices understanding and consents to assessment. Pt is A/O x4 and answers all questions appropriately at this time. Pt sitting in chair in no distress with dil at bedside. Pt very CACHIL DEHE. Care providers, pharmacy, and demographics verified/updated. Discussed therapy session with therapist. Admitting Dx: Rt anterior total hip PCP:Breana Specialists:aaliyah France Preferred Pharmacy: [facility] Insurance: [employer], [employer] Prescription Benefit: yes LNOK: Chalino Mcdonald, son; Vicky Mcdonald, dil Living Arrangements: Pt lives with son and dil and 3 grandchildren in a two story home with 1 step to enter. Pt reports he stays on the main level. Pt reports being I in ADL's and denies concerns at home. Transportation: Pt drives self and denies concerns with transportation. Pt dil to transport pt to medical appts until pt can drive again. DME/HHC/SNF: Pt has a shower chair, raised toilet seat, marine farmer, rollator and FWW. Pt denies hx of HHC and has been to [facility]. Pt states no concerns with going home at time of dc. Pt is interested in HHC at home for therapy. Patient was provided a list of HHC providers including quality and resource use data and consistent with the patient?s preferred geographic region, medical needs, and insurance network were provided from the [employer] Guide. Pt to review list and RN BRAXTON to check back. Pt states no further concerns/needs. CM to follow. Advised pt to ask CM if any further question/concerns/needs arise, voices understanding. Pt Goal: Home with HHC Plan: Home with HHC
--- NOTE | 2022-09-29 10:56 | PCM.PN.ORT ---
Subjective Subjective The patient was sitting in bedside chair with [id number] present upon examination. Patient denies any chest pain, shortness of breath, dizziness, lightheadedness, nausea or vomiting, or calf pain. Pain is controlled on medications. No adverse overnight events. Patient appears to be doing well today with pain well controlled. He denies any numbness and tingling down the right leg. No buttock pain. He does have history of previous stroke affecting his left side. 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 He states the right hip is doing well this morning. Physical therapy is recommending home health physical therapy. Objective Data Objective Data Vital Signs: Vital Signs Temp Pulse Resp BP Pulse Ox O2 Del Method O2 Flow Rate 97.3 F L 70 18 124/76 H 96 Room Air 4 09/29/22 05:23 09/29/22 07:12 09/29/22 07:12 09/29/22 05:23 09/29/22 05:23 09/29/22 09:20 09/28/22 13:00 Oxygen Flow Rate (L/min) 4 Oxygen Delivery Method Room Air Weight: 84 kg Body Mass Index (BMI) 25.8 Intake & Output: Intake and Output for Last 24 Hours 09/27/22 09/28/22 09/29/22 23:59 23:59 23:59 Intake Total 4277.00 / 4277.00 50 / 50 Output Total 75 / 75 Balance 4202.00 / 4202.00 50 / 50 Lab / Micro Data 09/29/22 06:59 09/29/22 06:59 Labs: Laboratory Results - last 24 hr 09/29/22 06:59: WBC 9.6, RBC 3.77 L, Hgb 11.7 L, Hct 34.8 L, MCV 92.3, MCH 31.0, MCHC 33.6, RDW Std Deviation 42.8, RDW Coeff of Erika 12.7, Plt Count 150, MPV 11.3, Sodium 137, Potassium 5.0, Chloride 105, Carbon Dioxide 25.0, Anion Gap 7, BUN 44 H, Creatinine 1.87 H, Estim Creat Clear Calc 31.88, Est GFR (MDRD) Af Amer 45 L, Est GFR (MDRD) Non-Af 37 L, BUN/Creatinine Ratio 23.5 H, Glucose 131 H, Calcium 8.3 L Micro: Microbiology 09/20/22 11:21 Swab (Method) Nasal Screen MRSA/MSSA - Final Radiography Diagnostic Testing: Radiology Impression Hip/Pelvis X-Ray 09/28/22 10:45 IMPRESSION: Image guidance for right hip arthroplasty. Please refer to operative note. Electronically Signed: Liza Hale MD at 10:04 EDT , Hip X-Ray 09/28/22 12:25 IMPRESSION: Status post right total hip replacement. There is good alignment. Postoperative soft tissue changes. Electronically Signed: Jun Carter MD at 13:02 EDT , Physical Exam Narrative Vital signs stable and afebrile. 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 Sensation is intact to light touch to saphenous, sural, superficial and deep peroneal, and tibial distribution. Dressing is clean dry and intact. Negative Homans bilaterally, negative signs and symptoms of DVT. Patient denies any numbness and tingling into bilateral lower extremities Nontender to palpation right buttock region Const alert, oriented x3 and no apparent distress Assessment & Plan Assessment/Plan (1) S/P total right hip arthroplasty: PLAN: 1. S/P right direct anterior total hip arthroplasty POD #1 2. Continue Pain Medications: Tylenol and tramadol 3. DVT Prophylaxis: Take 81 mg aspirin twice daily for 4 weeks postoperatively for DVT prophylaxis. Patient denies past history of DVT or pulmonary embolism 4. PT/OT: Weightbearing as tolerated with walker. Therapy is recommending home health physical therapy. Explained to the patient the importance of physical therapy postoperatively as he has had a previous stroke affecting the left side. 5. H & H: 11.7/34.8, asymptomatic. Postoperative anemia secondary to acute blood loss from surgery without any intra operative complications. 6. Continue postoperative medical management per medicine 7. Encouraged Incentive Spirometry 8. Disposition: Patient is orthopedically doing well today. Therapy is recommending home health physical therapy upon discharge. Case management currently involved with setting up home health. I discussed postoperative discharge planning with his [id number] as well. Patient would like his prescriptions E scribed to [facility]. He is to contact her office upon discharge with concerns or questions. Patient will follow-up per postoperative instructions I have reviewed the [place] Automated Rx Reporting System (OARRS) report for this patient for refill pattern and other prescriber involvement as part of the appropriate surveillance for the provision of acute and chronic controlled medications. The report was requested and reviewed on the date of this entry and was considered in the prescribing process. This dictation was created using voice recognition software. Phonetic and/or grammatical errors may exist.
--- NOTE | 2022-09-29 11:01 | PCM.DC ---
Discharge Instructions Diet Discharge Diet: No restrictions Activity Discharge Activity: May Not Drive (No driving for 6 weeks postoperatively and while taking narcotics) May shower in (days): 1 (only if incision is dry and without drainage. Do NOT soak/submerge in tub/pool/santoro/stream/hot tub.)) Ice area for (Minutes): 20 (Every 1-2 hours [address] barrier between ice and skin.) Weight Bearing Status: Weight bearing as tolerated Keep extremity elevated above heart level: Operative Extremity Additional Activity Instructions:: Follow [facility] Post-op Instructions. Once postoperative dressing has been removed only use gentle soap and water over the incision. Do not use any ointments, Neosporin, salves, alcohol pads over the incision for 6 weeks postoperatively. Do not submerge underwater for 6 weeks postoperatively. Wear elastic stockings for 2 weeks. Do NOT use alcohol with narcotic pain medication. Do NOT make important decisions while taking narcotic medication. If you have problems with taking your medication (rash, itching, nausea, etc.) call the office at once. Dressing / Incision Call your doctor if your incision/area has: Continuous Slow Oozing, Sudden Increased Bleeding, Increased Pain/ Swelling, Increased Redness and Foul Smelling Discharge Call your doctor if you observe: Fever of 101 or Higher, Shortness of breath, Chest pain, Calf discomfort and Uncontrolled pain Remove Dressing in: 4 days (Okay to remove dressing on October 03, 2022) Additional Dressing/Incision Instructions:: Follow [facility] Post-op Instructions. Once postoperative dressing has been removed, only use gentle soap and water over the incision. Do not use any ointments, Neosporin, salves, alcohol pads over the incision for 6 weeks postoperatively. Do not submerge underwater for 6 weeks postoperatively. Continue with VILMA hose/elastic stockings for 2 weeks postoperatively. May remove at nighttime but needs to be placed back on the leg during the day. Do NOT use alcohol with narcotic pain medication. Do NOT make important decisions while taking narcotic medication. If you have problems with taking your medication (rash, itching, nausea, etc.) call the office at once. Follow Up Care Test Results: Test results from this visit will be discussed in further detail at your follow-up appointment, if applicable. Discharge Plan Admission Admit Date/Time: 09/28/22 14:42 Attending Provider: Christopher France Primary Care Provider: Ramila Toussaint Consulting Providers: Florence Millan; Mary Gonzalez Discharge Orders/Prescriptions Prescriptions: New acetaminophen 500 mg Tablet 1,000 mg PO TID 14 Days Qty: 84 0RF Rx Instructions: Do not take more than 3000 mg Tylenol in a 24-hour period. aspirin 81 mg tablet,delayed release (DR/EC) 81 mg PO BID 30 Days Qty: 60 0RF Rx Instructions: Take 81 mg aspirin twice daily for 4 weeks postoperatively for DVT prophylaxis. famotidine 20 mg Tablet 20 mg PO DAILY 30 Days Qty: 30 0RF sennosides-docusate sodium [Stool Softener-Stimulant Laxat] 8.6-50 mg Tablet 2 tab PO BID 3 Days Qty: 12 0RF Rx Instructions: Take until first bowel movement, then as needed tramadol 50 mg Tablet 50 - 100 mg PO Q6H PRN PRN (Reason: Pain Score 4-10) 5 Days Qty: 42 0RF Continued enalapril maleate 20 mg Tablet 20 mg PO DAILY levothyroxine 25 mcg Tablet 25 mcg PO DAILY labetalol 100 mg Tablet 100 mg PO BID cholecalciferol (vitamin D3) [Vitamin D3] 25 mcg (1,000 unit) Tablet 25 mcg PO DAILY fluticasone furoate-vilanterol [Breo Ellipta] 100-25 mcg/dose Blister With Device 1 inh INHALATION DAILY albuterol sulfate 90 mcg/actuation Hfa Aerosol Inhaler 1 inh INHALATION Q6H PRN (Reason: SOB) Discontinued tramadol 50 mg Tablet 50 mg PO Q6H PRN (Reason: Pain) ibuprofen [Advil] 200 mg Tablet 200 mg PO Q6H PRN (Reason: Pain) Referrals / Follow Up: Ramila Toussaint DO [Primary Care Provider] - Jorge Pineda PA-C [Med Staff - Adv Practice Prof] - 10/13/22 3:00 pm Disposition Disposition (needs filled in before D/C Order can be placed): Home Health Service
--- NOTE | 2022-09-29 11:28 | PCM.PN.HOSP ---
Reason for Visit Reason for Visit: Right hip osteoarthritis Subjective Subjective Patient states he is not having any pain and had no pain with ambulation today with physical and Occupational Therapy. Anxious to go home and indicates he feels that the plan is for discharge later today. Objective Data Objective Data Vital Signs: Vital Signs Temp Pulse Resp BP Pulse Ox O2 Del Method O2 Flow Rate 97.3 F L 70 18 124/76 H 96 Room Air 4 09/29/22 05:23 09/29/22 07:12 09/29/22 07:12 09/29/22 05:23 09/29/22 05:23 09/29/22 09:20 09/28/22 13:00 Oxygen Flow Rate (L/min) 4 Oxygen Delivery Method Room Air Weight: 84 kg Body Mass Index (BMI) 25.8 Intake & Output: Intake and Output for Last 24 Hours 09/27/22 09/28/22 09/29/22 23:59 23:59 23:59 Intake Total 4277.00 / 4277.00 50 / 50 Output Total 75 / 75 Balance 4202.00 / 4202.00 50 / 50 Lab / Micro Data 09/29/22 06:59 09/29/22 06:59 Labs: Laboratory Results - last 24 hr 09/29/22 06:59: WBC 9.6, RBC 3.77 L, Hgb 11.7 L, Hct 34.8 L, MCV 92.3, MCH 31.0, MCHC 33.6, RDW Std Deviation 42.8, RDW Coeff of Erika 12.7, Plt Count 150, MPV 11.3, Sodium 137, Potassium 5.0, Chloride 105, Carbon Dioxide 25.0, Anion Gap 7, BUN 44 H, Creatinine 1.87 H, Estim Creat Clear Calc 31.88, Est GFR (MDRD) Af Amer 45 L, Est GFR (MDRD) Non-Af 37 L, BUN/Creatinine Ratio 23.5 H, Glucose 131 H, Calcium 8.3 L Micro: Microbiology 09/20/22 11:21 Swab (Method) Nasal Screen MRSA/MSSA - Final Radiography Diagnostic Testing: Radiology Impression Hip/Pelvis X-Ray 09/28/22 10:45 IMPRESSION: Image guidance for right hip arthroplasty. Please refer to operative note. Electronically Signed: Liza Hale MD at 10:04 EDT , Hip X-Ray 09/28/22 12:25 IMPRESSION: Status post right total hip replacement. There is good alignment. Postoperative soft tissue changes. Electronically Signed: Jun Carter MD at 13:02 EDT , Physical Exam Const alert, oriented x3, no apparent distress, average body habitus, healthy appearing and well nourished Constitutional Narrative: Elderly, white male, sitting up in chair at the bedside, has just completed working with therapy services, appears comfortable, nontoxic HEENT head/scalp atraumatic and moist oral mucous membranes HEENT Narrative: Patient is extremely hard of hearing Head and Scalp: normocephalic Resp normal respiratory effort, no retractions, no use of accessory muscles and clear to auscultation bilaterally Auscultation: Negative for rales, rhonchi or wheezes Cardio regular rate, regular rhythm, S1 normal heart sound, S2 normal heart sound, no murmurs, no rub, no gallops and no clicks GI normal to inspection, nondistended, normoactive bowel sounds, soft to palpation and non-tender Extremity no clubbing, cyanosis or edema Extremity Narrative: Operative dressing in place and this is clean dry and intact, pedal pulses are 2+, Neuro oriented x3 and moves all extremities Neuro Narrative: Decreased movement right lower extremity due to postoperative sequelae but no new focal deficits other than his baseline residual left-sided weakness from previous stroke Speech: speech normal Psych affect normal Psych Narrative: Very pleasant Assessment & Plan Assessment/Plan (1) Osteoarthritis of right hip: PLAN: Plan Osteoarthritis of the right hip -Postop day 1 right total hip arthroplasty -Management per primary service -PT/OT following and patient did well this morning -Weightbearing as tolerated -Aspirin twice daily for DVT prophylaxis -Outpatient follow-up with orthopedic surgery in 2 weeks History of stroke -Persistent left-sided weakness -Patient is not on any chronic medications pertaining to this at this time including aspirin or Plavix CKD stage IIIb -Baseline serum creatinine looks to be between 1.4 and 1.6 -Preoperative serum creatinine 1.48 on 09/20/2022 -Avoid nephrotoxins as able -Check a.m. BMP Hypertension -Continue home enalapril -Continue home labetalol Hypothyroidism -Continue home levothyroxine Vitamin D deficiency -Continue cholecalciferol History of asthma -No current signs of exacerbation -Continue home inhalers DVT prophylaxis -Per primary service with aspirin twice daily Disposition: -Patient is stable for discharge home from medical standpoint Charges/Coding Visit Charges Inpatient E&M: 84595 Subs Hosp L1
[2022-09-29 12:47] VITALS: PULSE 73; RESP 16
[2022-09-29 15:08] VITALS: BP 102/61; PULSE 73; RESP 18; TEMP 36.6; O2SAT 96
--- NOTE | 2022-09-29 15:25 | CASEMGMT ---
Discharge Planning Referral sent to [facility] via [facility]. Dominga Alvares, Discharge Planning Asst.
== END 2022-09-29 17:11 | disposition home health service (06) ==
LOC: SDC 14:42 → MS3 14:42
PROVIDERS: Anesthesiology; Admitting Provider Specialist; PCP Family Medicine; Referring Provider Specialist; Visit Provider Specialist
PROC: (CPT 27284; principal; 2022-09-28 09:35)
DX: M16.11 Unilateral primary osteoarthritis, right hip (principal); I69.354 Hemiplegia and hemiparesis following cerebral infarction affecting left non-dominant side; N18.32 Chronic kidney disease, stage 3b; H91.90 Unspecified hearing loss, unspecified ear; J45.909 Unspecified asthma, uncomplicated; I12.9 Hypertensive chronic kidney disease with stage 1 through stage 4 chronic kidney disease, or unspecified chronic kidney disease; E03.9 Hypothyroidism, unspecified; Z79.899 Other long term (current) drug therapy; Z79.890 Hormone replacement therapy; M21.372 Foot drop, left foot; E55.9 Vitamin D deficiency, unspecified
CPT/HCPCS: 27130; 01214; 36415; 71046; 73501; 73502; 76000; 80048; 82040; 82962; 83735; 84443; 85025; 85027; 87081; 88305; 88311; 94640; 94668; 96365; 96366; 97110; 97116; 97162; 97166; 97530; 99221; 99252; C1776; J7120; G0378; G0463; J2405; J3475

== ENCOUNTER → 2022-12-27 | Outpatient (CLI) | payer MEDICARE, OTHER, SELFPAY ==
[2022-12-27 12:14] LABS: Absolute Lymphocyte Count 0.95 X10^3/uL (0.83-4.51); Basophil# 0.07 X10^3/uL; Basophil% 1.1 % (0-1); Eosinophil# 0.76 X10^3/uL; Eosinophils% 11.9 % (0-5); Hematocrit 41.3 % (40-54); Hemoglobin 13.1 g/dL (13.0-16.5); Lymphocyte # 0.95 X10^3/ul (0.83-4.51); Lymphocyte % 14.9 % (19-41); Mean Corp Hgb Conc 31.7 g/dL (32-36); Mean Corpuscular Volume 94.5 fL (80-94); Monocyte# 0.62 X10^3/uL; Monocyte% 9.7 % (0-10); NRBC Flagged by Analyzer 0 % (0-5); Neutrophil # 3.95 X10^3/uL (2.7-7.7); Neutrophil % 61.8 % (47-70); Platelet Count 196 K/mm3 (150-450); RBC Distribution Width CV 13.4 % (11.6-14.6); RET-HE 33.7 pg (30-35); Red Blood Count 4.37 M/mm3 (4.6-6.2); Reticulocyte Count 1.06 % (0.5-1.5); White Blood Count 6.4 K/mm3 (4.4-11.0)
[2022-12-27 12:46] LABS: Vitamin B12 458 pg/mL (211-911)
[2022-12-27 13:28] LABS: Ferritin 91 ng/mL (26-388); Iron 86 ug/dL (65-175); Iron Binding Capacity,Total 318 ug/dL (250-450); T4 Free Direct 0.84 ng/dL (0.76-1.46); Thyroid Stim Hormone (TSH) 5.82 uIU/mL (0.358-3.74)
== END | disposition home or self-care (01) ==
LOC: MFPLAB 10:56
PROVIDERS: PCP Family Medicine; Visit Provider Family Medicine
DX: D64.9 Anemia, unspecified (principal); E03.9 Hypothyroidism, unspecified
CPT/HCPCS: 36415; 82607; 82728; 82746; 83540; 83550; 84439; 84443; 85025; 85045

== ENCOUNTER → 2023-03-01 | Outpatient (CLI) | payer MEDICARE, OTHER, SELFPAY ==
[2023-03-01 15:38] LABS: T4 Free Direct 0.98 ng/dL (0.76-1.46); Thyroid Stim Hormone (TSH) 1.93 uIU/mL (0.358-3.74)
== END | disposition home or self-care (01) ==
LOC: MFPLAB 12:35
PROVIDERS: PCP Family Medicine; Visit Provider Family Medicine
DX: E03.9 Hypothyroidism, unspecified (principal)
CPT/HCPCS: 36415; 84439; 84443

== ENCOUNTER → 2023-06-27 | Outpatient (CLI) | payer MEDICARE, OTHER, SELFPAY ==
[2023-06-27 13:15] LABS: ALB/GLOB Ratio 1.1 RATIO (0.9-2.4); AST(SGOT) 14 U/L (15-37); Alanine Aminotransfer ALT/SGPT 21 U/L (16-61); Albumin, Serum 3.6 g/dL (3.2-5.0); Alkaline Phosphatase 50 U/L (45-117); Anion Gap 5 (5-15); BUN 48 mg/dL (7-18); BUN/Creat Ratio 27.9 RATIO (10-20); Calcium,Total 9.2 mg/dL (8.5-10.1); Chloride 108 mmol/L (98-107); Cholesterol 204 mg/dL (200); Creatinine, Serum 1.72 mg/dL (0.70-1.30); EST Glomerular Filtration Rate 40 mL/min (>60); Est Glom Filt Rate - Afr Amer 49 mL/min (>60); Globulin 3.4 g/dL (2.2-4.2); Glucose 105 mg/dL (74-106); High Density Lipoprotein 49 mg/dL; Potassium 5.2 mmol/L (3.5-5.1); Sodium Level 140 mmol/L (136-145); Triglycerides 127 mg/dL; Very Low Density Lipoprotein 25 mg/dL (5-40)
[2023-06-27 13:32] LABS: Microalbumin,Random Urine 29.3 mg/L (NO RANGE EST.)
== END | disposition home or self-care (01) ==
LOC: MFPLAB 09:52
PROVIDERS: PCP Family Medicine; Visit Provider Family Medicine
DX: I10 Essential (primary) hypertension (principal); E78.00 Pure hypercholesterolemia, unspecified
CPT/HCPCS: 36415; 80053; 80061; 82043; 82570

== ENCOUNTER → 2023-11-15 | Outpatient (CLI) | payer MEDICARE, OTHER, SELFPAY ==
[2023-11-15 11:10] LABS: ALB/GLOB Ratio 1.1 RATIO (0.9-2.4); AST(SGOT) 16 U/L (15-37); Alanine Aminotransfer ALT/SGPT 18 U/L (16-61); Albumin, Serum 3.5 g/dL (3.2-5.0); Alkaline Phosphatase 55 U/L (45-117); Anion Gap 7 (5-15); BUN 42 mg/dL (7-18); BUN/Creat Ratio 23.7 RATIO (10-20); Calcium,Total 9.5 mg/dL (8.5-10.1); Chloride 110 mmol/L (98-107); Creatinine, Serum 1.77 mg/dL (0.70-1.30); EST Glomerular Filtration Rate 39 mL/min (>60); Est Glom Filt Rate - Afr Amer 47 mL/min (>60); Globulin 3.3 g/dL (2.2-4.2); Glucose 108 mg/dL (74-106); Potassium 4.9 mmol/L (3.5-5.1); Protein, Total 6.8 g/dL (6.4-8.2); Sodium Level 139 mmol/L (136-145)
== END | disposition home or self-care (01) ==
PROVIDERS: PCP Family Medicine; Visit Provider Family Medicine
DX: I10 Essential (primary) hypertension (principal)
CPT/HCPCS: 36415; 80053

== ENCOUNTER → 2024-02-14 | Outpatient (CLI) | payer MEDICARE, OTHER, SELFPAY ==
--- NOTE | 2024-02-14 10:27 | MRI_ITS ---
STUDY: MRI BRAIN WITH AND WITHOUT CONTRAST REASON FOR EXAM: Male, 83 years old. BILATERAL OPTIC ATROPHY W/SEVERE DECREASED VISION TECHNIQUE: Standardized multiplanar fat and water weighted pulse sequences were obtained. 18ML IV CLARISCAN was administered for the contrast portion of the examination. COMPARISON: None. 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 The left cerebellar pontine angle meningioma covers and extends slightly into the internal auditory canal surrounding the 7th and 8th cranial nerves and it measures 3.16 x 1.25 cm in diameter. Prior craniotomy defect of the left lateral superior frontal region with associated susceptibility artifact. A lobular nonenhancing multiseptated cystic intraparenchymal lesion is present at the junction and superior aspect of the right frontal and parietal lobes near the postcentral gyrus measuring 1.45 x 1.24 cm. This lesion is favored to represent a benign neuroglial or epithelial cyst. No vasogenic edema or infiltrative process is seen around this cystic lesion. There are no additional intra-axial lesions of the brain parenchyma. There is moderate atrophy of the origins of the bilateral optic nerves entering the optic canals due to chronic mass effect from the meningioma in this region. There is mild cerebral atrophy with widening of the extra-axial spaces and ventricular dilatation. There are a limited number of small white matter hyperintensities, distributed throughout the deep white matter tracts of the cerebral hemispheres, consistent with mild chronic white matter ischemic changes. There is no evidence for recent intracranial ischemia or other cause of cytotoxic edema on diffusion weighted imaging (DWI). Normal T2* images of the brain without demonstrated susceptibility artifact. There is no demonstrated hemosiderin stain. Normal bilateral basal ganglia. Normal thalami. There is no extra-axial fluid accumulation. Normal flow voids within the major intracranial circulation suggesting patency by spin echo criteria. Normal venous enhancement. Normal sella turcica, pituitary gland, infundibular stalk, optic chiasm and hypothalamus. Normal tectal plate and pineal gland. Normal midbrain, diane and medulla. Normal cerebellum. Normal basal cisterns. Normal bilateral temporal bones. Normal bilateral internal auditory canals. Normal visualized paranasal sinuses. Normal visualized soft tissue structures. Normal visualized upper cervical spine. MRI/Brain W/WO Contrast IMPRESSION: Multiple intracranial meningiomas. 1. 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 2. The left cerebellar pontine angle meningioma covers and extends slightly into the internal auditory canal surrounding the 7th and 8th cranial nerves and it measures 3.16 x 1.25 cm in diameter. 3. Prior craniotomy defect of the left lateral superior frontal region with associated susceptibility artifact. 4. A lobular nonenhancing multiseptated cystic intraparenchymal lesion is present at the junction and superior aspect of the right frontal and parietal lobes near the postcentral gyrus measuring 1.45 x 1.24 cm. This lesion is favored to represent a benign neuroglial or epithelial cyst. No vasogenic edema or infiltrative process is seen around this cystic lesion. 5. There are no additional intra-axial lesions of the brain parenchyma. 6. There is moderate atrophy of the origins of the bilateral optic nerves entering the optic canals due to chronic mass effect from the meningioma in this region. Electronically Signed: Jayson Watson MD at 12:27 EST ,
[2024-02-14 11:02] LABS: CREATININE FINGERSTICK 1.9 mg/dL (0.70-1.30)
== END | disposition home or self-care (01) ==
PROVIDERS: PCP Family Medicine; Referring Provider Ophthalmology; Visit Provider Ophthalmology
DX: H47.20 Unspecified optic atrophy (principal); H53.9 Unspecified visual disturbance
CPT/HCPCS: 70553; A9575